=== PATIENT | female | born 1975 | race Caucasian/White ===

== ENCOUNTER 2023-06-12 15:20 | Outpatient (OUT) | payer OTHER, SELFPAY ==
--- NOTE | 2023-06-12 15:28 | MR_ITS ---
The [address] [address] Patient Name: MELISSA KHOURY MRN: [facility]:[id number] date: 1975 Sex: F Assigned Patient Location: MRI Current Patient Location: MRI Accession/Order Number: [id number] Exam Date: 06/12/2023 15:35 Report Date: 06/12/2023 17:04 At the request of: MIKHAIL ROMAN Procedure: MR head/brain wo/w con EXAM: MR head/brain wo/w con HISTORY: Dizzy spells R42, Migraine G43.909 COMPARISON: None. TECHNIQUE: Axial sagittal T1, axial T2, axial FLAIR, axial UMM, axial GRE, axial, sagittal, coronal T1 celeste FINDINGS: There is no diffusion abnormality. Focal encephalomalacia of the right anterior temporal lobe. Additional mild encephalomalacia in the right frontal and parietal lobes. Mild T2 hyperintensity in the central white matter. The vascular flow voids are patent. Internal auditory canals appear unremarkable. The extra-axial structures appear normal. The orbits, sella, and craniocervical junction are unremarkable. MR/MR head/brain wo/w con IMPRESSION: No MRI evidence for acute ischemia. Encephalomalacia right middle cerebral artery distribution. Mild T2 hyperintensity in the central white matter. Most likely sequela small vessel ischemic change or other demyelinating process. No acute intracranial findings by brain MRI with and without contrast Electronically authenticated by: LUZ MARINA DELVALLE Date: 06/12/2023 17:04
== END 2023-06-12 15:21 | disposition home or self-care (01) ==
PROVIDERS: PCP Family Medicine; Visit Provider Nurse Practitioner Family
DX: R42 Dizziness and giddiness (principal); G43.909 Migraine, unspecified, not intractable, without status migrainosus
CPT/HCPCS: 70553; A9575

== ENCOUNTER 2023-08-08 14:19 | Outpatient (OUT) | payer OTHER, SELFPAY ==
--- NOTE | 2023-08-08 | MR_ITS ---
The [address] [address] Patient Name: MELISSA KHOURY MRN: [facility]:[id number] date: 1975 Sex: F Assigned Patient Location: MRI Current Patient Location: MRI Accession/Order Number: [id number] Exam Date: 08/08/2023 14:49 Report Date: 08/08/2023 15:27 At the request of: JAE GARCIA Procedure: MR angio head wo con MR angio head wo con, 08/08/2023 2:49 PM EDT INDICATION: Follow-up of MRI dated 06/12/2023 COMPARISON: MRI dated 06/12/2023 Technique: Multiplanar, multisequential [id number] MRA images of [place] were obtained without contrast. 3-D reconstruction was performed. FINDINGS: Again encephalomalacias within the right temporal and frontal lobes are noted. 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 The visualized portion of [place] is unremarkable. The FATOUMATA, MCA, LAUNDRY BAG PUNCH OPERATOR and the vertebral and basilar arteries are unremarkable. There are patent posterior and anterior communicating arteries. No aneurysm or significant stenosis is noted. MR/MR angio head wo con IMPRESSION: Normal MRA of the brain. STENOSIS REFERENCE: MILD = <50% stenosis. MODERATE = 50-69% stenosis. SEVERE = >70% stenosis. Electronically authenticated by: JUDITH SOLARES Date: 08/08/2023 15:27
== END 2023-08-08 14:20 | disposition home or self-care (01) ==
LOC: MRI 14:20
PROVIDERS: PCP Family Medicine; Visit Provider Family Medicine
DX: I66.9 Occlusion and stenosis of unspecified cerebral artery (principal); G43.909 Migraine, unspecified, not intractable, without status migrainosus
CPT/HCPCS: 70544

== ENCOUNTER 2025-08-22 10:24 | Outpatient (OUT) | payer OTHER, SELFPAY ==
[2025-08-22 11:12] LABS: Hematocrit 40.5 % (36.0-48.0); Hemoglobin 13.5 g/dL (12.0-16.0); Immature Granulocytes Abs Auto 0.03 10^3/uL (0.00-0.03); Immature Granulocytes Pct Auto 0.4 % (0.0-0.5); Lymphocytes Absolute Auto 2.4 10^3/uL (1.2-3.8); Mean Corpuscular HGB Conc 33.3 g/dL (29.9-35.2); Mean Corpuscular Hemoglobin 29.7 pg (26.7-34.0); Mean Corpuscular Volume 89.0 fL (81.0-99.0); Platelet Count 285 10^3/uL (150-450); Red Blood Count 4.55 10^6/uL (4.20-5.40); White Blood Count 7.8 10^3/uL (4.0-11.0)
[2025-08-22 12:09] LABS: Alanine Aminotransferase 24 U/L (14-59); Albumin Globulin Ratio 0.8; Albumin Level 3.3 g/dL (3.4-5.0); Alkaline Phosphatase 98 U/L (46-116); Anion Gap 11.6; Aspartate Amino Transferase 14 U/L (15-37); Blood Urea Nitrogen 13.0 mg/dL (7.0-18.0); Calcium 8.7 mg/dL (8.5-10.1); Carbon Dioxide 26.2 mmol/L (21.0-32.0); Chloride 106 mmol/L (98-107); Cholesterol 236 mg/dL (<=200); Estimated GFR (African America >60 (>=60 mL/min/1.73m^2); Estimated GFR (Non-African Ame 58 (>=60 mL/min/1.73m^2); Free T3 2.57 pg/mL (2.18-3.98); Globulin 4.2 g/dL; Glucose 81 mg/dL (74-106); HDL Cholesterol 49 mg/dL (40-60); Potassium 3.8 mmol/L (3.5-5.1); Sodium 140 mmol/L (136-145); Thyroid Stimulating Hormone 1.177 uIU/mL (0.358-3.740); Total Protein 7.5 g/dL (6.4-8.2); Triglycerides 70 mg/dL (<=150); VLDL CHOLESTEROL 14.0 mg/dL
[2025-08-22 13:14] LABS: Iron 124.0 ug/dL (50.0-170.0)
[2025-08-23 08:12] LABS: FSH 0.8 mIU/mL (.)
== END 2025-08-22 10:25 | disposition home or self-care (01) ==
PROVIDERS: PCP Family Medicine; Visit Provider Family Medicine
DX: Z00.00 Encounter for general adult medical examination without abnormal findings (principal)
CPT/HCPCS: 36415; 80053; 80061; 83001; 83036; 83525; 83540; 84436; 84443; 84481; 85025

== ENCOUNTER 2025-09-23 15:15 | Outpatient (OUT) | payer OTHER, SELFPAY ==
--- NOTE | 2025-09-23 15:20 | US_ITS ---
Patient Name: MELISSA KHOURY MR#: [id number] : 1975 Exam Date: 09/23/2025 Ordering Doctor: FLORENTINO PARSON RADIOLOGY REPORT PROCEDURE: MM TOMOSYNTHESIS DIAGNOSTIC BI, 09/23/2025, 15:13 US BREAST RT LIMITED, 09/23/2025, 16:05 COMPARISON: MM TOMOSYNTHESIS SCREENING BI, 09/06/2023. INDICATIONS: Breast Pain Right Calculator Name NCI Breast Cancer Risk Assessment Tool 5 Year Breast Cancer Risk 0.90% Lifetime Breast Cancer Risk 9.20% Personal Breast Cancer No Personal Ovarian Cancer No Treatments None Family Cancers Father with prostate cancer at age ~70; Grandfather-paternal with prostate cancer at age ~70. LOCATION: The [facility] BREAST COMPOSITION: There are scattered areas of fibroglandular density. FINDINGS: No suspicious findings are seen involving the left breast. A potential mass seen at the approximately 9 o'clock position of the right breast. Please note that no prior imaging is available for direct comparison. Ultrasound of the 9 o'clock position of the right breast 4.1 cm from the nipple demonstrates a hypoechoic mass measuring 6 x 6 x 4 mm size with what appears to be an adjacent intramammary lymph node. DIAGNOSTIC CATEGORY 4--SUSPICIOUS FOR MALIGNANCY. RECOMMENDATIONS: Findings were discussed with the patient. Ultrasound-guided biopsy will be scheduled of the mass at the 9 o'clock position of the right breast. ULTRASOUND-GUIDED CORE BIOPSY: RIGHT BREAST Dictated by: Henrry Lance DO on 09/23/2025 at 16:34 Approved by: Henrry Lance DO on 09/23/2025 at 16:39
--- NOTE | 2025-09-23 16:00 | MM_ITS ---
Patient Name: MELISSA KHOURY MR#: [id number] : 1975 Exam Date: 09/23/2025 Ordering Doctor: FLORENTINO PARSON RADIOLOGY REPORT PROCEDURE: MM TOMOSYNTHESIS DIAGNOSTIC BI, 09/23/2025, 15:13 US BREAST RT LIMITED, 09/23/2025, 16:05 COMPARISON: MM TOMOSYNTHESIS SCREENING BI, 09/06/2023. INDICATIONS: Breast Pain Right Calculator Name NCI Breast Cancer Risk Assessment Tool 5 Year Breast Cancer Risk 0.90% Lifetime Breast Cancer Risk 9.20% Personal Breast Cancer No Personal Ovarian Cancer No Treatments None Family Cancers Father with prostate cancer at age ~70; Grandfather-paternal with prostate cancer at age ~70. LOCATION: The [facility] BREAST COMPOSITION: There are scattered areas of fibroglandular density. FINDINGS: No suspicious findings are seen involving the left breast. A potential mass seen at the approximately 9 o'clock position of the right breast. Please note that no prior imaging is available for direct comparison. Ultrasound of the 9 o'clock position of the right breast 4.1 cm from the nipple demonstrates a hypoechoic mass measuring 6 x 6 x 4 mm size with what appears to be an adjacent intramammary lymph node. DIAGNOSTIC CATEGORY 4--SUSPICIOUS FOR MALIGNANCY. RECOMMENDATIONS: Findings were discussed with the patient. Ultrasound-guided biopsy will be scheduled of the mass at the 9 o'clock position of the right breast. ULTRASOUND-GUIDED CORE BIOPSY: RIGHT BREAST Dictated by: Henrry Lance DO on 09/23/2025 at 16:34 Approved by: Henrry Lance DO on 09/23/2025 at 16:39
== END 2025-09-23 15:16 | disposition home or self-care (01) ==
LOC: MAMMO 15:15
PROVIDERS: PCP Family Medicine; Visit Provider Advanced Practice Midwife
DX: N64.4 Mastodynia (principal); Z80.42 Family history of malignant neoplasm of prostate; R92.8 Other abnormal and inconclusive findings on diagnostic imaging of breast
CPT/HCPCS: 76642; 77066; G0279